=== PATIENT | male | born 1965 | race Caucasian/White ===

== ENCOUNTER 2025-03-02 13:58 | Outpatient (AMB) | payer OTHER, SELFPAY ==
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
[2025-03-02 14:10] VITALS: BP 138/80; PULSE 76; RESP 16; TEMP 36.9; O2SAT 96; BMI 24.7
== END 2025-03-02 15:02 | disposition home or self-care (01) ==
LOC: HO.HMCHD 13:59
PROVIDERS: PCP Physician Assistant; Visit Provider Physician Assistant Medical
DX: Z00.00 Encounter for general adult medical examination without abnormal findings (principal); M54.41 Lumbago with sciatica, right side; K57.90 Diverticulosis of intestine, part unspecified, without perforation or abscess without bleeding; F17.210 Nicotine dependence, cigarettes, uncomplicated

== ENCOUNTER → 2025-03-02 13:58 | Outpatient (BNVA) | payer OTHER, SELFPAY | PROVIDERS: PCP Physician Assistant; Visit Provider Physician Assistant Medical | DX: M54.41 Lumbago with sciatica, right side (principal); K57.90 Diverticulosis of intestine, part unspecified, without perforation or abscess without bleeding; F17.210 Nicotine dependence, cigarettes, uncomplicated | CPT/HCPCS: 99202 ==

== ENCOUNTER 2025-03-24 12:38 | Outpatient (RCR) | payer OTHER, SELFPAY | END 2025-05-30 11:50 | disposition home or self-care (01) | LOC: HO.PT 12:38 | PROVIDERS: PCP Physician Assistant; Visit Provider Physician Assistant Medical | DX: M54.41 Lumbago with sciatica, right side (principal) | CPT/HCPCS: 97110; 97162; 97535 ==